=== PATIENT | male | born 1950 | race Two or more races ===

== ENCOUNTER 2019-09-16 20:18 | Inpatient (IN) | payer OTHER, MEDICAID ==
--- NOTE | 2019-09-13 23:15 | NUR ---
Wound photo taken. Patient was finally relaxed enough to allow me to look at his left foot, where his daughter, Priyanka, told us he had a wound. Wound photo taken on non-blanchable pressure area to left second toe. All other skin appears intact. Patient still refusing to allow me to assess the rest of his skin. Addendum: 09/18/19 at 7 by BRENNAN MEDINA RN Wrong time. Disregard.
[~2019-09-16] VITALS: Ht 170.2 cm; Wt 86.1 kg
[2019-09-16 21:20] LABS: Basophils # (auto) 0 10 ^3/uL (0-0.2); Basophils % (auto) 0.4 % (0.0-2.0); Eosinophils # (auto) 0.1 10 ^3/uL (0-0.8); Eosinophils % (auto) 1.5 % (0.0-7.0); Hematocrit 41.6 % (41.0-53.0); Hemoglobin 13.9 g/dL (13.5-17.5); Lymphocytes # (auto) 2.1 10 ^3/uL (0.4-5.4); Lymphocytes % (auto) 31.5 % (10.0-50.0); Mean Corpuscular Hgb Conc. 33.5 g/dL (32.0-36.0); Mean Corpuscular Volume 92.7 fL (80.0-100.0); Monocytes # (auto) 0.6 10 ^3/uL (0-1.3); Monocytes % (auto) 9.1 % (0.0-12.0); Neutrophils # (auto) 3.8 10 ^3/uL (1.6-8.6); Neutrophils % (auto) 57.5 % (37.0-80.0); Nucleated Red Blood Cells % 0.1 %; Platelet Count (auto) 137 10^3/uL (140-450); Red Blood Cells 4.49 10^6/uL (4.5-5.90); Red Cell Distribution Width 13.2 % (11.8-14.3); White Blood Cell 6.5 10^3/uL (4.4-10.8)
[2019-09-16 21:31] LABS: INR 1.11 (0.9-1.15); Partial Thromboplastin Time 29.1 sec (23.64-32.05)
[2019-09-16 21:37] LABS: Albumin 3.2 g/dL (3.4-5.0); Anion Gap 5 (5-15); Blood Urea Nitrogen 29 mg/dL (7-18); Calcium 8.4 mg/dL (8.5-10.1); Carbon Dioxide 24 mmol/L (21-32); Chloride 111 mmol/L (98-107); Glucose 127 mg/dL (74-106); Magnesium 2.1 mg/dL (1.6-2.6); Potassium 3.8 mmol/L (3.5-5.1); Sodium 140 mmol/L (136-145)
[2019-09-16 21:45] LABS: Alanine Aminotransferase 21 U/L (16-61); Alkaline Phosphatase 130 U/L (45-117); Aspartate Aminotransferase 18 U/L (15-37); BUN/Creatinine Ratio 16.8; Bilirubin, Total 0.5 mg/dL (0.2-1.0); GFR African American 51 mL/min; GFR Non-African American 42 mL/min; Total Protein 7.7 g/dL (6.4-8.2)
[2019-09-17] MEDS ORDERED: DEXTROSE (50%) 50ML SYRG IV PRN ×2 (00:30→10:15)
[2019-09-17] MEDS ORDERED: TEMAZEPAM 15 MG CAP PO PRN (00:30)
[2019-09-17] MEDS ORDERED: ONDANSETRON HCL 4 MG/2 ML VIAL IV PRN (00:30)
[2019-09-17] MEDS ORDERED: ACETAMINOPHEN 325 MG TAB PO PRN (00:30)
[2019-09-17] MEDS ORDERED: NITROGLYCERIN 0.4 MG SL TAB SL PRN (01:00)
[2019-09-17] MEDS ORDERED: MORPHINE SULF INJ 2 MG/ML SYRINGE 1ML IV PRN (01:00)
[2019-09-17] MEDS ORDERED: InsuLIN REG 1unit/0.01ml Soln (100units/ml) SC SCH ×2 (07:00→22:00)
[2019-09-17] MEDS ORDERED: ACCU-CHEK COMFORT CURVE STRIP VI SCH (07:00)
--- NOTE | 2019-09-17 08:25 | NUR ---
Telemetry admit from KATARINA CROWDERANAMIKA POOLE admitted to Telemetry unit after SBAR received. Patient oriented to SIMON, rama RN, unit, room, bed, and unit policies regarding patient care and visiting hours. Patient now on continuous telemetry monitoring, tele box #27 and telemetry reading on arrival to unit is sinus rhythm 74bpm. Patient on room air, weighed by bedscale, sitter at bed side for safety due to inpredictable behavior. All questions and concerns addressed, patient needs reinforcement due to wandering thoughts and inability to concentrate.
--- NOTE | 2019-09-17 08:35 | NUR ---
Patient refuses complete assessment, by refusing to take off jeans and socks. Patient educated on need of accurate assessment and continues to refuse and agitated. Will try again later. Sitter at bed side for safety.
--- NOTE | 2019-09-17 08:45 | NUR ---
MED REC/PHARMACY Unable to update home medication record or pharmacy. Patient verbalizes he does take medications at home but is unable to provide names or dosages, and states he has no pharmacy. Unable to verify with family d/t no [facility] contact info in chart and pt unable to provide info.
--- NOTE | 2019-09-17 09:11 | NUR ---
Emergency Contact Unable to add emergency contact, patient states he lives with his daughter July in [place] but does not know her phone number. No number on file.
--- NOTE | 2019-09-17 09:12 | NUR ---
Pneumonia/Flu Vaccine Unable to verify if patient vaccinated, patient states he does not know.
[2019-09-17] MEDS: PANTOPRAZOLE 40 MG TAB PO SCH (10:05)
[2019-09-17] MEDS: ASPirin 81 mg TAB PO SCH (10:05)
[2019-09-17] MEDS: SODIUM CHLORIDE 0.9% 1,000 ML IV SCH (10:15)
--- NOTE | 2019-09-17 11:00 | NUR ---
Call from patients daughter July, best call back number is [phone]. PW:Emilee Mcdowell able to update patients PMH, HOME MEDS, PHARMACY, VACCINE HX REMAINS UNKNOWN. Will update MD on new findings.
[2019-09-17] MEDS ORDERED: OMEP20TA PO (11:01)
[2019-09-17] MEDS ORDERED: QUET25TA37 PO (11:01)
[2019-09-17] MEDS ORDERED: AML5T PO (11:01)
[2019-09-17] MEDS ORDERED: ASCO500T11 PO (11:01)
[2019-09-17] MEDS ORDERED: LEVE500T22 PO (11:01)
[2019-09-17] MEDS ORDERED: LACT10PA2 PO (11:01)
[2019-09-17] MEDS ORDERED: RISP0.5T12 PO (11:01)
[2019-09-17] MEDS ORDERED: LISI10TA6 PO (11:01)
--- NOTE | 2019-09-17 11:05 | NUR ---
WOUND ASSESSMENT Per CARLA (DAUGHTER), she was told by [facility] that patient had a "right second toe necrotic wound", daughter states patient has been living with her since beginning of June and has not visualized wound herself. Patient continues to refuse assessment, by refusing to take off socks. Also unable to visualize legs, buttocks, back area due to clothing.
--- NOTE | 2019-09-17 11:15 | NUR ---
Nuc Med tech at bed side. Patient agitated and cursing at staff. Refusing IV inj needed for cardiolite. Will made MD aware.
[2019-09-17] MEDS ORDERED: amLODIPine BESYLATE 5 MG TAB PO ONE (11:30)
[2019-09-17] MEDS ORDERED: risperiDONE 1 MG TAB PO ONE (11:30)
--- NOTE | 2019-09-17 11:30 | NUR ---
Md Benítez aware of new findings. Home meds resumed and new orders received. Refer to order hx.
--- NOTE | 2019-09-17 11:40 | NUR ---
Prn for agitation administered as per order. Per MD, call nuc med after patient is calm to resume with order.
[2019-09-17] MEDS: LORazepam 2MG/ML-1ML VIAL IV PRN ×2 (11:43→20:23)
[2019-09-17] MEDS: ACCU-CHEK COMFORT CURVE STRIP VI SCH ×3 (11:47→23:08)
[2019-09-17] MEDS: InsuLIN REG 1unit/0.01ml Soln (100units/ml) SC SCH ×3 (11:54→23:25)
--- NOTE | 2019-09-17 12:55 | NUR ---
Call to [facility] med post PRN administration. Per tech they will servicing computers at 1400 and test takes about 90 min. Test to be rescheduled for AM. Patient to remain NPO status after midnight.
[2019-09-17 13:00] VITALS: BP 136/88
--- NOTE | 2019-09-17 16:27 | NUR ---
Per sitter patient became agitated and got out of bed and while being connected to IVF threw pole to floor and IV nearly came off. Patient currently sitting on side of bed, IV still patent and in place, and dressing reinforced. PRN not due at this time. Will continue to monitor.
[2019-09-17 17:00] VITALS: BP 143/90
--- NOTE | 2019-09-17 17:00 | NUR ---
Patient continues to be agitated and disoriented. Reoriented to place, situation and time. Patient refuses 1700 glucose test. Rumbling about "being at bank and needs to deposit money"
--- NOTE | 2019-09-17 19:26 | NUR ---
Opening Shift Note Assumed care of patient, awake but alert only to self/. No S/S of distress/SOB or pain. Patient seems calm one moment and easily frustrated and aggressive with staff the next. Sitter available at bedside. Bed is in lowest position and locked. Call light within reach. Board updated. Tele box number matches monitor and leads are in correct placement. Instructed on POC and to call for assist PRN, will continue to monitor for changes Q1hr and PRN.
--- NOTE | 2019-09-17 19:38 | NUR ---
closing note patient resting in bed on room air with even and unlabored respirations. no s/s of distress. bed in lowest locked position with side rails up x 2 and patted for seizure precautions, sitter at bed side for safety. Endorsed care to NOC shift RN.
--- NOTE | 2019-09-17 20:14 | NUR ---
Patient refusing to allow me to assess him. Patient refusing to allow me to assess skin or listen to lungs, abdomen, and heart. Patient is confused, alert to self only, and has very labile temper. Will attempt to assess later after Ativan administration.
--- NOTE | 2019-09-17 21:15 | NUR ---
Patient refusing to have second IV placed for cardiolite stress test. Patient is confused (alert to self) but gets agitated and pulls away when anyone touches him. Patient has one 20 gauge IV to right wrist.
[2019-09-17 22:00] VITALS: BP 144/92
[2019-09-17] MEDS: LACTULOSE 20Gm/30ML SOLN PO SCH (23:00)
[2019-09-17] MEDS: levETIRAcetam 500 MG TAB PO SCH (23:07)
[2019-09-17] MEDS: ATORVASTATIN 20 MG TAB PO SCH (23:07)
[2019-09-17] MEDS: risperiDONE 1 MG TAB PO SCH (23:08)
[2019-09-17] MEDS: QUEtiapine FUMARATE 25 MG TAB PO SCH (23:08)
--- NOTE | 2019-09-17 23:15 | NUR ---
Wound photo taken. Patient was finally relaxed enough to allow me to look at his left foot, where his daughter, Priyanka, told us he had a wound. Wound photo taken on non-blanchable pressure area to left second toe. All other skin appears intact. Patient still refusing to allow me to assess the rest of his skin.
[2019-09-18] MEDS: SODIUM CHLORIDE 0.9% 1,000 ML IV SCH ×2 (02:55→19:35)
[2019-09-18] MEDS: LORazepam 2MG/ML-1ML VIAL IV PRN (04:31)
--- NOTE | 2019-09-18 04:34 | NUR ---
Patient became agitated and aggressive with staff. Patient got up to use the restroom with DEPARTMENT SALES MANAGER sitter but became unsteady on his feet and aggressive. We helped patient to toilet and back without trouble but patient pulled off his tele-box and refused to allow us to put it back on. Patient is alert and oriented to self only. We attempted a second time to reorient patient and he became slightly calmer but then he pulled off his tele leads again within minutes. DEPARTMENT SALES MANAGER attempted to take vitals from patient. Patient became aggressive once more when I attempted to take an axillary temp. Patient allowed us to put temp probe in mouth but then started biting the probe. We removed it quickly to prevent patient from injuring himself. Ativan given for anxiety. Will reassess. Notified [place] office of patient's behavior and refusal of tele box.
[2019-09-18 05:00] VITALS: BP 151/80
--- NOTE | 2019-09-18 05:07 | NUR ---
Paging LAURA Hernandez to notify that patient will not allow us to keep his Tele-box on and is refusing other standard treatments like allowing us to assess his skin or collect vital signs. Patient was admitted for unstable angina and CP. Cardiology is on board and patient is scheduled for ECHO today. Patient has history of dementia and has been aggressive with staff since his admission on 09/16. Patient was given Ativan to calm him down. He has become calmer but he still pulls of the tele leads as soon as they are replaced on his chest.
[2019-09-18 05:52] LABS: Basophils # (auto) 0 10 ^3/uL (0-0.2); Basophils % (auto) 0.5 % (0.0-2.0); Eosinophils # (auto) 0.1 10 ^3/uL (0-0.8); Eosinophils % (auto) 1.9 % (0.0-7.0); Hematocrit 40.2 % (41.0-53.0); Hemoglobin 14.2 g/dL (13.5-17.5); Lymphocytes # (auto) 1.7 10 ^3/uL (0.4-5.4); Lymphocytes % (auto) 27.1 % (10.0-50.0); Mean Corpuscular Hemoglobin 32.3 pg (28.0-32.0); Mean Corpuscular Hgb Conc. 35.3 g/dL (32.0-36.0); Mean Corpuscular Volume 91.5 fL (80.0-100.0); Monocytes # (auto) 0.6 10 ^3/uL (0-1.3); Monocytes % (auto) 9.1 % (0.0-12.0); Neutrophils # (auto) 3.8 10 ^3/uL (1.6-8.6); Neutrophils % (auto) 61.4 % (37.0-80.0); Platelet Count (auto) 137 10^3/uL (140-450); Red Cell Distribution Width 13.3 % (11.8-14.3); White Blood Cell 6.2 10^3/uL (4.4-10.8)
[2019-09-18 06:21] LABS: BUN/Creatinine Ratio 20.5; Calcium 8.7 mg/dL (8.5-10.1); Potassium 3.6 mmol/L (3.5-5.1)
[2019-09-18] MEDS: InsuLIN REG 1unit/0.01ml Soln (100units/ml) SC SCH ×4 (06:25→22:00)
[2019-09-18] MEDS: ACCU-CHEK COMFORT CURVE STRIP VI SCH ×4 (06:25→22:00)
[2019-09-18] MEDS ORDERED: LORazepam 0.5 MG TAB PO PRN (07:00)
--- NOTE | 2019-09-18 07:30 | NUR ---
Opening Shift Note Assumed care of patient, awake, confused . No S/S of distress/SOB or pain. Instructed on POC and to call for assist PRN, will continue to monitor for changes Q1hr and PRN. Sitter at bedside.
--- NOTE | 2019-09-18 08:00 | NUR ---
Patient assisted to turned to his side. Skin to back and buttocks clear. Unable to assess feet. Will continue to monitor.
[2019-09-18 09:00] VITALS: BP 131/83
--- NOTE | 2019-09-18 09:50 | NUR ---
Dr. Benítez in to see patient as hospitalist.
[2019-09-18] MEDS: ASPirin 81 mg TAB PO SCH (10:00)
[2019-09-18] MEDS: LISINOPRIL 10 MG TAB PO SCH (10:00)
[2019-09-18] MEDS: LACTULOSE 20Gm/30ML SOLN PO SCH ×2 (10:00→22:00)
[2019-09-18] MEDS: risperiDONE 1 MG TAB PO SCH ×2 (10:00→22:00)
[2019-09-18] MEDS: PANTOPRAZOLE 40 MG TAB PO SCH (10:00)
[2019-09-18] MEDS: amLODIPine BESYLATE 5 MG TAB PO SCH (10:00)
[2019-09-18] MEDS: levETIRAcetam 500 MG TAB PO SCH ×2 (10:00→22:00)
--- NOTE | 2019-09-18 10:01 | NUR ---
Patient taken to [facility] by [facility] staff. slab off mill tender informed the patient has dementia and the family has not been informed of the procedure.
--- NOTE | 2019-09-18 10:25 | NUR ---
Biochemistry Specialist; Patient brought down to Biochemistry Specialist Pre-Op, Spoke to Julyleann Gutierrez (daughter) via telephone, password confirmed ("Emilee"). Dr. Patterson spoke to her and attempted to obtain consent for [facility] procedure, however at this time July feels the procedure is not warranted and elected to no proceed with procedure. Patient taken back up to room, sitter at bedside, primary RN given report, care endorsed to RN.
--- NOTE | 2019-09-18 10:26 | NUR ---
Patient returned to room. Sitter at bedside.
--- NOTE | 2019-09-18 11:21 | NUR ---
WOUND CARE NOTE: Wound care in to see patient per wound care request regarding "Injury to left second toe" that are noted present on admission. Bedside nurse took photograph of wound upon admission for reference. Patient is 69 years old male with admitting diagnosis of Unstable Angina. Patient is resting in bed in Rm. 212A. His eyes are closed, respirations even and unlabored. Patient appears to be in no pain using Mart Griffiths Faces Pain Scale. His Aditya score is 20.No open wound noted other than L 2nd toe 0.5x0.5cm, dry, lean, scabbed abrasion, surrounding skin is pink, clean and dry,left open to air. Nurse medical services assistant at bedside. No further wound care monitoring needed at this time. RECOMMENDATION: Nursing to continue with BID/PRN cleaning and application of Barrier to sacral, buttocks as preventative,redistribute pressure points with pillows, reconsult for active wound, pressure injury,low Aditya score of 12 and below. Addendum: 09/18/19 at 1304 by Carmencita Chapa RN Amended: Links added.
[2019-09-18] MEDS ORDERED: LORazepam 2MG/ML-1ML VIAL IV PRN (12:00)
--- NOTE | 2019-09-18 12:05 | NUR ---
Patient OOB in the bathroom. Patient yelling, waving arms. Patient very unsteady in his feet, refusing assist back to bed. Candy Townsend called. Security came to room. Patient eventually went back to sit in chair. Dr. Jeyson mcgarry for Ativan IV PRN order. Patient given 1 mg Ativan IV. Patient assisted back to bed. Will continue to monitor. Sitter at bedside.
--- NOTE | 2019-09-18 12:15 | NUR ---
Dr. Benítez informed that the patient is refusing to take PO meds.
--- NOTE | 2019-09-18 14:25 | NUR ---
Nutrition Assessment Notes Please refer to link for full assessment notes. Est Energy needs: 2508-3545 kcals (17-20 kcal/kgBW) Est Protein needs: 101-135 gms/day (1.5-2.0 gm/kgBW) d/t pt obesity Will continue to monitor and reassess prn. Addendum: 09/18/19 at [address] Amended: Links added.
--- NOTE | 2019-09-18 14:29 | NUR ---
Received call from marilia. Patient found OOB in the bathroom urinating in the toilet. Patient very unsteady on his feet. Sitter trying to steady patient. Patient started yelling, turned around, hit wall with his fist. Patient calmed down, assisted back to bed. Patient refused to have linens changed at this time. Will continue to monitor.
--- NOTE | 2019-09-18 14:35 | NUR ---
Patient continually pulls off telemetry box. Page placed to Dr. Benítez to see if telemetry can be discontinued.
--- NOTE | 2019-09-18 16:39 | NUR ---
Assessment Patient is a 69-year-old male who is confused with mental disorders. Assessment was completed with patient daughter July ). Per July prior to admission patient lived home with her and functioned with assistance. Per July patient has been living with her since June of 2019 stating patient was previously at [facility]. July informed me patient has dementia with schizophrenia and bipolar disorder. Advised July there is a Social Service consult for placement. Per July she has been contacting different placements for patient but has been unable to place him as she can no longer care for him. Per July patient receives SSI and disability combined with an amount of [id number]. July has question about hospice and would like provider to evaluate patient to see if he meets criteria. Informed July she has the right to participate in all discharge planning. July verbalized understanding and agreed to discharge plan. Informed JANNETTE Grajeda regarding possible hospice with placement. , Dr. Webb will be notified. Addendum: 09/18/19 at 1640 by DUTCH SEXTON Amended: Links added.
--- NOTE | 2019-09-18 19:20 | NUR ---
Opening Shift Note Assumed care of patient, awake, alert and oriented to self, on room air with even and unlabored respirations, no S/S of distress/SOB or pain. Patient able to turn in bed independently, bed in lowest locked position, side rails up x2, and call light within reach. Sitter at bedside for safety. Instructed on POC and to call for assist PRN, will continue to monitor for changes Q1hr and PRN.
--- NOTE | 2019-09-18 20:00 | NUR ---
PATIENT REFUSED ASSESSMENT PATIENT REFUSED FOR ASSESSMENT OF ANY SORT, INCLUDING HEART, LUNGS, SKIN. INFORMED PATIENT ON IMPORTANCE OF ALLOWING AN ASSESSMENT. WILL CONTINUE TO MONITOR Q1 PRN. SITTER AT BEDSIDE FOR SAFETY.
[2019-09-18] MEDS: ATORVASTATIN 20 MG TAB PO SCH (22:00)
[2019-09-18] MEDS: QUEtiapine FUMARATE 25 MG TAB PO SCH (22:00)
[2019-09-19 05:54] LABS: Basophils # (auto) 0 10 ^3/uL (0-0.2); Basophils % (auto) 0.4 % (0.0-2.0); Eosinophils # (auto) 0.1 10 ^3/uL (0-0.8); Eosinophils % (auto) 2.2 % (0.0-7.0); Hematocrit 42.6 % (41.0-53.0); Hemoglobin 14.6 g/dL (13.5-17.5); Lymphocytes # (auto) 1.7 10 ^3/uL (0.4-5.4); Lymphocytes % (auto) 29.1 % (10.0-50.0); Mean Corpuscular Hemoglobin 31.2 pg (28.0-32.0); Mean Corpuscular Hgb Conc. 34.2 g/dL (32.0-36.0); Mean Corpuscular Volume 91.2 fL (80.0-100.0); Monocytes # (auto) 0.6 10 ^3/uL (0-1.3); Monocytes % (auto) 9.2 % (0.0-12.0); Neutrophils # (auto) 3.5 10 ^3/uL (1.6-8.6); Neutrophils % (auto) 59.1 % (37.0-80.0); Nucleated Red Blood Cells % 0.1 %; Platelet Count (auto) 141 10^3/uL (140-450); Red Blood Cells 4.67 10^6/uL (4.5-5.90); Red Cell Distribution Width 13.5 % (11.8-14.3)
[2019-09-19 06:08] LABS: Potassium 3.9 mmol/L (3.5-5.1)
[2019-09-19 06:13] LABS: BUN/Creatinine Ratio 17.6; Calcium 8.9 mg/dL (8.5-10.1)
[2019-09-19] MEDS: InsuLIN REG 1unit/0.01ml Soln (100units/ml) SC SCH ×4 (06:56→21:34)
[2019-09-19] MEDS: ACCU-CHEK COMFORT CURVE STRIP VI SCH ×4 (06:56→21:33)
--- NOTE | 2019-09-19 07:30 | NUR ---
Opening Shift Note RECEIVED REPORT FROM NOC RN. Assumed care of patient, awake and alert. No S/S of distress/SOB or pain. BED IN LOWEST, LOCKED POSITION WITH SIDERAILS UP x2 AND CALL LIGHT WITHIN REACH AND SITTER AT BEDSIDE. Instructed on POC and to call for assist PRN, will continue to monitor for changes Q1hr and PRN.
[2019-09-19] MEDS: levETIRAcetam 500 MG TAB PO SCH ×2 (10:20→21:26)
[2019-09-19] MEDS: LACTULOSE 20Gm/30ML SOLN PO SCH ×2 (10:20→21:25)
[2019-09-19] MEDS: ASPirin 81 mg TAB PO SCH (10:20)
[2019-09-19] MEDS: amLODIPine BESYLATE 5 MG TAB PO SCH (10:21)
[2019-09-19] MEDS: LISINOPRIL 10 MG TAB PO SCH (10:22)
[2019-09-19] MEDS: PANTOPRAZOLE 40 MG TAB PO SCH (10:22)
[2019-09-19] MEDS: risperiDONE 1 MG TAB PO SCH ×2 (10:22→21:26)
[2019-09-19 13:34] VITALS: BP 130/78
[2019-09-19 13:50] VITALS: BP 130/78
[2019-09-19] MEDS: SODIUM CHLORIDE 0.9% 1,000 ML IV SCH (15:37)
[2019-09-19 16:53] VITALS: BP 132/76
--- NOTE | 2019-09-19 17:14 | NUR ---
PATIENT COMPLIANT WITH ALL ASSESSMENTS, TREATMENTS, AND MEDICATIONS.
--- NOTE | 2019-09-19 19:09 | NUR ---
Received report from JANNETTE Busby. Pt in bed resting A&o x3, respirations even and unlabored no signs of distress noted. safety checks, bed at lowest position, wheel locked, call light within reach, no clutter on floor. sitter at bedside. Signed: 09/19/19 at 1912 by Reg Keshav BHATIA
[2019-09-19] MEDS: QUEtiapine FUMARATE 25 MG TAB PO SCH (21:25)
[2019-09-19] MEDS: ATORVASTATIN 20 MG TAB PO SCH (21:26)
[2019-09-19 21:30] VITALS: BP 111/57
[2019-09-20] MEDS: SODIUM CHLORIDE 0.9% 1,000 ML IV SCH ×2 (04:55→21:35)
[2019-09-20] MEDS: InsuLIN REG 1unit/0.01ml Soln (100units/ml) SC SCH ×4 (06:05→22:00)
[2019-09-20] MEDS: ACCU-CHEK COMFORT CURVE STRIP VI SCH ×4 (06:05→22:00)
--- NOTE | 2019-09-20 07:27 | NUR ---
End of shift note Report given to JANNETTE Davila. Pt in bed with eyes closed, respirations even and unlabored, face expression relaxed, no signs of distress. Bed at lowest position, wheels locked, call light within reach, floor free of clutter. Sitter at bedside.
--- NOTE | 2019-09-20 07:40 | NUR ---
Opening Shift Note Assumed care of patient, awake and alert. No S/S of distress/SOB or pain. Instructed on POC and to call for assist PRN, will continue to monitor for changes Q1hr and PRN. Bed locked in lowest position with two side rails up and call light in reach.
--- NOTE | 2019-09-20 08:00 | NUR ---
OFFERED BREAKFAST TO PATIENT. HE STATED "YA BITCH AFTER I TAKE A SHOWER". THEN HE FELL BACK TO SLEEP. JANNETTE EDMOND NOTIFIED.
--- NOTE | 2019-09-20 08:45 | NUR ---
PATIENT CLIMBING OUT OF BED, I ASKED HIM TO LET ME HELP HIM HE STATED "FUCK YOU BITCH I DON'T NEED YOUR HELP". THEN I OFFERED TO GET HIS SLIPPERS FOR HIM, AND HE JUMPED UP CHARGING AT ME I BACKED UP OUT THE ROOM. HE WAS YELLING AND CURSING AT ME. WHEN I REACHED THE EDMOND I YELLED FOR HELP. JANNETTE EDMOND CAME TO HELP AND HE WAS HELPED BACK TO BED BY JANNETTE GUERRERO.
[2019-09-20] MEDS: LACTULOSE 20Gm/30ML SOLN PO SCH ×2 (09:17→22:45)
[2019-09-20] MEDS: PANTOPRAZOLE 40 MG TAB PO SCH (09:17)
[2019-09-20] MEDS: ASPirin 81 mg TAB PO SCH (09:18)
[2019-09-20] MEDS: levETIRAcetam 500 MG TAB PO SCH ×2 (09:18→22:46)
[2019-09-20] MEDS: risperiDONE 1 MG TAB PO SCH ×2 (09:19→22:00)
[2019-09-20] MEDS: amLODIPine BESYLATE 5 MG TAB PO SCH (09:24)
[2019-09-20] MEDS: LISINOPRIL 10 MG TAB PO SCH (09:24)
--- NOTE | 2019-09-20 09:30 | NUR ---
PATIENT REFUSED VITALS FOR MYSELF CHARGE NURSE CORINNA AND FOR LAMBERTO EDMOND. HEWAS INFORMED THE IMPORTANCE OF HIS VITALS. WILL TRY AGAIN LATER IN THE DAY
--- NOTE | 2019-09-20 10:42 | NUR ---
PATIENT BEHAVIOR PATIENT AGITATED, WALKING UP TO AIRPLANE DISPATCHER SITTER BEING AGGRESSIVE IN TONE, AND LANGUAGE. CALMED PATIENT DOWN AND REDIRECTED TO ROOM. MORNING MEDICATIONS GIVEN EXCEPT BP MEDS PATIENT REFUSING VITALS SIGNS. SO BP MEDICATIONS HELD DUE TO NOT GETTING BP PRIOR TO MEDICATIONS.
--- NOTE | 2019-09-20 13:00 | NUR ---
PATIENT REFUSED VITALS AT THIS TIME WILL TRY AGAIN AT 1700. JANNETTE EDMOND NOTIFIED
--- NOTE | 2019-09-20 14:40 | NUR ---
PATIENT AGITATED SECURITY REDIRECTING PATIENT BACK TO BED.
--- NOTE | 2019-09-20 16:10 | NUR ---
PAGED [facility] UNDERWRITER SW TO FIND OUT PATIENTS DISCHARGE STATUS FROM YESTERDAY. NO NEW NOTES PLACED IN REGARDS TO DISCHARGE BEING HELD. WILL AWAIT CALL BACK.
[2019-09-20 17:00] VITALS: BP 123/76
--- NOTE | 2019-09-20 17:25 | NUR ---
NO CALL BACK FROM [facility] RECEIVED. DR DENSON AWARE. WE WILL WAIT FOR AN UPDATE.
--- NOTE | 2019-09-20 20:00 | NUR ---
Opening Shift Note Assumed care of patient, awake and alert. No S/S of distress/SOB or pain. Instructed on POC and to call for assist PRN, will continue to monitor for changes Q1hr and PRN. Patient informed of the importance of telemetry monitoring and IV access. Patient decline to have both. Sitter at bedside.
[2019-09-20] MEDS: QUEtiapine FUMARATE 25 MG TAB PO SCH (22:00)
--- NOTE | 2019-09-20 22:00 | NUR ---
REFUSED TO HAVE HIS VITALS TAKEN. YELLED TO BE LEFT ALONE AND NOT BE TOUCHED.
[2019-09-20] MEDS: ATORVASTATIN 20 MG TAB PO SCH (22:46)
[2019-09-21 05:00] VITALS: BP 103/63
[2019-09-21] MEDS: InsuLIN REG 1unit/0.01ml Soln (100units/ml) SC SCH ×4 (06:49→23:00)
[2019-09-21] MEDS: ACCU-CHEK COMFORT CURVE STRIP VI SCH ×4 (06:49→23:00)
--- NOTE | 2019-09-21 06:53 | NUR ---
Patient resting comfortably;sitter remains at bedside. Patient continues to refuse Tele- monitoring and IV insertion. No distress noted.
[2019-09-21 07:01] LABS: Basophils # (auto) 0 10 ^3/uL (0-0.2); Basophils % (auto) 0.3 % (0.0-2.0); Eosinophils # (auto) 0.1 10 ^3/uL (0-0.8); Eosinophils % (auto) 1.1 % (0.0-7.0); Hematocrit 42.8 % (41.0-53.0); Hemoglobin 14.6 g/dL (13.5-17.5); Lymphocytes # (auto) 1.6 10 ^3/uL (0.4-5.4); Lymphocytes % (auto) 25.6 % (10.0-50.0); Mean Corpuscular Hemoglobin 31.5 pg (28.0-32.0); Mean Corpuscular Hgb Conc. 34.2 g/dL (32.0-36.0); Mean Corpuscular Volume 92.3 fL (80.0-100.0); Monocytes # (auto) 0.7 10 ^3/uL (0-1.3); Monocytes % (auto) 10.9 % (0.0-12.0); Neutrophils # (auto) 3.8 10 ^3/uL (1.6-8.6); Neutrophils % (auto) 62.1 % (37.0-80.0); Nucleated Red Blood Cells % 0.1 %; Platelet Count (auto) 142 10^3/uL (140-450); Red Blood Cells 4.63 10^6/uL (4.5-5.90); Red Cell Distribution Width 13.1 % (11.8-14.3); White Blood Cell 6.1 10^3/uL (4.4-10.8)
[2019-09-21 07:19] LABS: BUN/Creatinine Ratio 21.9; Calcium 8.9 mg/dL (8.5-10.1); Potassium 3.7 mmol/L (3.5-5.1)
--- NOTE | 2019-09-21 07:40 | NUR ---
Opening Shift Note Assumed care of patient who is sleeping at this time. No S/S of distress/SOB or pain. Will continue to monitor for changes Q1hr and PRN. Bed locked in lowest position with two side rails up and call light in reach. Sitter at bedside.
[2019-09-21] MEDS: LACTULOSE 20Gm/30ML SOLN PO SCH ×2 (09:33→23:00)
[2019-09-21] MEDS: PANTOPRAZOLE 40 MG TAB PO SCH (09:34)
[2019-09-21] MEDS: levETIRAcetam 500 MG TAB PO SCH ×2 (09:34→23:00)
[2019-09-21] MEDS: risperiDONE 1 MG TAB PO SCH ×2 (09:34→23:00)
[2019-09-21] MEDS: ASPirin 81 mg TAB PO SCH (09:35)
[2019-09-21] MEDS: amLODIPine BESYLATE 5 MG TAB PO SCH (10:00)
[2019-09-21] MEDS: LISINOPRIL 10 MG TAB PO SCH (10:00)
--- NOTE | 2019-09-21 11:57 | NUR ---
Nutrition Followup Notes Wt: 85.6 kg Pt was sleeping with no family by bedside. per records pt with dementia. pt with no distress noted. pt is currently on CCHO 60 gm/meal diet with inadequate PO of <50% x 4 per RN doc Est Energy needs: 2198-1769 kcals (17-20 kcal/kgBW), Est Protein needs: 101-135 gms/day (1.5-2.0 gm/kgBW) d/t pt obesity. Will continue to monitor and reassess prn. LABS: BUN 33 H, CREAT 1.51 H, GI: Pt has 2 BM yesterday per RN doc BS: 21 low risk skin intact per RN doc PES: 1) Altered nutrition related lab values aeb elev Troponin, mild hypoalbuminemia r/t current medical condition 2) Obesity aeb 132% IBW and BMI of 30.6 kg/m2 r/t energy intake in excess of energy needs Comments 1) Continue to closely monitor pt PO intake to meet at least 75% of meals. 2) Continue current plan of care. F/u mod 3-5 days
--- NOTE | 2019-09-21 13:15 | NUR ---
DR JIAN CLAY. NEW ORDERS RECEIVED WILL IMPLEMENT.
--- NOTE | 2019-09-21 13:30 | NUR ---
PER DR JIAN MORA TO RI TELE PATIENT HAS BEEN REFUSING TELEMETRY FOR DAYS. ALSO OK TO LEAVE IV ACCESS OUT PATIENT IS ALSO REFUSING.
[2019-09-21] MEDS: SODIUM CHLORIDE 0.9% 1,000 ML IV SCH (14:15)
[2019-09-21] MEDS ORDERED: LORazepam 0.5 MG TAB PO PRN (14:30)
--- NOTE | 2019-09-21 17:37 | NUR ---
PT REFUSED ALL VITALS TODAY, NURSE NOTIFIED
--- NOTE | 2019-09-21 20:42 | NUR ---
Pt resting quietly in bed. Sitter at bedside. Denies complaints. NAD. easily woken to voice. Respirations unlabored. Skin warm and dry. WCTM.
[2019-09-21 22:00] VITALS: BP 106/65
--- NOTE | 2019-09-21 22:00 | NUR ---
Patient refused all medications and accucheck. Asleep, easily woken to voice. Respirations unlabored. Skin warm and dry.NAD. Sitter at bedside. HASMUKH.
[2019-09-21] MEDS: QUEtiapine FUMARATE 25 MG TAB PO SCH (23:00)
[2019-09-21] MEDS: ATORVASTATIN 20 MG TAB PO SCH (23:00)
[2019-09-22] MEDS: SODIUM CHLORIDE 0.9% 1,000 ML IV SCH (05:40)
[2019-09-22] MEDS: InsuLIN REG 1unit/0.01ml Soln (100units/ml) SC SCH ×4 (05:51→21:23)
[2019-09-22] MEDS: ACCU-CHEK COMFORT CURVE STRIP VI SCH ×4 (05:52→21:23)
--- NOTE | 2019-09-22 06:27 | NUR ---
Pt resting quietly in bed. Easily woken to voice. Gown and linens clean and dry. Respirations unlabored. Skin warm and dry. Sitter at bedside. No IV access on tele monitor, MD aware, no further orders. NAD. No changes to patient condition.
--- NOTE | 2019-09-22 07:30 | NUR ---
OPENING NOTE ASSUMED CARE OF PT. PT AWAKE AND ALERT. NO S/S OF SOB/DISTRESS NOTED. BED SET TO LOWEST POSITION/LOCKED, BEDSIDE RAILS UP X2, CALL LIGHT WITHIN REACH. INSTRUCTED PT TO CALL FOR ASSISTANCE. SITTER AT BEDSIDE FOR SAFETY. WILL CONTINUE TO MONITOR Q1HR AND PRN.
[2019-09-22 09:00] VITALS: BP 124/79
[2019-09-22] MEDS: ASPirin 81 mg TAB PO SCH (09:39)
[2019-09-22] MEDS: levETIRAcetam 500 MG TAB PO SCH ×2 (09:39→21:12)
[2019-09-22] MEDS: risperiDONE 1 MG TAB PO SCH ×3 (09:39→21:12)
[2019-09-22] MEDS: LISINOPRIL 10 MG TAB PO SCH (09:40)
[2019-09-22] MEDS: PANTOPRAZOLE 40 MG TAB PO SCH (09:40)
[2019-09-22] MEDS: amLODIPine BESYLATE 5 MG TAB PO SCH (09:40)
[2019-09-22] MEDS: LACTULOSE 20Gm/30ML SOLN PO SCH ×2 (09:42→21:12)
[2019-09-22 13:00] VITALS: BP 127/82
[2019-09-22 13:58] LABS: Basophils # (auto) 0 10 ^3/uL (0-0.2); Basophils % (auto) 0.2 % (0.0-2.0); Eosinophils # (auto) 0.1 10 ^3/uL (0-0.8); Eosinophils % (auto) 0.8 % (0.0-7.0); Hematocrit 45.1 % (41.0-53.0); Hemoglobin 15.5 g/dL (13.5-17.5); Lymphocytes # (auto) 1.5 10 ^3/uL (0.4-5.4); Lymphocytes % (auto) 21.5 % (10.0-50.0); Mean Corpuscular Hemoglobin 31.5 pg (28.0-32.0); Mean Corpuscular Hgb Conc. 34.3 g/dL (32.0-36.0); Mean Corpuscular Volume 92.1 fL (80.0-100.0); Monocytes # (auto) 0.8 10 ^3/uL (0-1.3); Monocytes % (auto) 11.7 % (0.0-12.0); Neutrophils # (auto) 4.7 10 ^3/uL (1.6-8.6); Neutrophils % (auto) 65.8 % (37.0-80.0); Platelet Count (auto) 175 10^3/uL (140-450); Red Cell Distribution Width 13.1 % (11.8-14.3); White Blood Cell 7.1 10^3/uL (4.4-10.8)
[2019-09-22 14:11] LABS: Calcium 8.9 mg/dL (8.5-10.1); Potassium 4.4 mmol/L (3.5-5.1)
--- NOTE | 2019-09-22 17:03 | NUR ---
D/C Planning Per SS consult for hospice. Faxed clinical information to [facility] as requested by family. Per Carina with [facility] ) they are looking for placement. Will follow up in the morning.
[2019-09-22 17:15] VITALS: BP 120/72
--- NOTE | 2019-09-22 19:24 | NUR ---
Opening Shift Note Assumed care of patient after receiving report from cindy Todd RN. Patient awake and alert with no S/S of distress/SOB or pain. Call light within reach, bed in lowest position x2 side rails, sitter at bedside. Instructed on POC and to call for assist PRN, will continue to monitor for changes Q1hr and PRN.
[2019-09-22] MEDS: ATORVASTATIN 20 MG TAB PO SCH (21:13)
[2019-09-22] MEDS: QUEtiapine FUMARATE 25 MG TAB PO SCH (21:13)
[2019-09-22 22:00] VITALS: BP 119/71
--- NOTE | 2019-09-23 06:23 | NUR ---
Patient refused vitals Per NA, patient refused vital signs assessment.
--- NOTE | 2019-09-23 06:52 | NUR ---
Patient refused scheduled accu checks.
[2019-09-23] MEDS: InsuLIN REG 1unit/0.01ml Soln (100units/ml) SC SCH ×4 (06:53→22:00)
[2019-09-23] MEDS: ACCU-CHEK COMFORT CURVE STRIP VI SCH ×4 (06:54→22:00)
[2019-09-23] MEDS: amLODIPine BESYLATE 5 MG TAB PO SCH (10:00)
[2019-09-23] MEDS: PANTOPRAZOLE 40 MG TAB PO SCH (10:00)
[2019-09-23] MEDS: ASPirin 81 mg TAB PO SCH (10:00)
[2019-09-23] MEDS: LACTULOSE 20Gm/30ML SOLN PO SCH ×2 (10:00→22:00)
[2019-09-23] MEDS: levETIRAcetam 500 MG TAB PO SCH ×2 (10:00→22:00)
[2019-09-23] MEDS: risperiDONE 1 MG TAB PO SCH ×2 (10:27→22:00)
--- NOTE | 2019-09-23 10:34 | NUR ---
BEHAVIOR PATIENT IS BEING AGGRESSIVE AND BELLIGERENT WITH DR. HIDALGO AND NURSE, PATIENT IS BEGIN COMBATIVE WITH NURSE. PATIENT WAS REORIENTED AND CALMED DOWN. PATIENT WAS ADMINISTERED HIM MORNING MEDICATION RISPERDAL. PATIENT REFUSED ALL OTHER MEDICATION. WILL CONTINUE TO MONITOR FOR CHANGES.
--- NOTE | 2019-09-23 13:13 | NUR ---
COVID SWAB COVID SWAB COLLECTED AND WALK TO LAB BY THIS NURSE.
--- NOTE | 2019-09-23 17:15 | NUR ---
SOCIAL SERVICE PAGED HOME PERFORMANCE LABORER SOCIAL SERVICE RE: COVID RESULTS, AWAITING CALL BACK.
[2019-09-23 17:21] VITALS: BP 110/84
--- NOTE | 2019-09-23 19:15 | NUR ---
OPENING SHIFT NOTE: ASSUMED CARE OF PATIENT. PATIENT IS AWAKE AND ALERT BUT AGGRESSIVE TOWARDS PRIMARY RN AND STAFF. NO S/S OF SOB OR DISTRESS, RE-ORIENTED PATIENT AND CALMING ENVIRONMENT PROVIDED. BED IS IN LOWEST LOCKED POSITION, TWO SIDE RAILS RAISED, CALL CAMACHO WITHIN REACH, SAFETY MEASURES IN PLACE AND SITTER AT THE BEDSIDE. PATIENT REFUSES TO EAT DINNER AND VERBALIZES HE DOES NOT WANT PRIMARY RN TO TOUCH HIM SO PRIMARY ASSESSMENT UNABLE TO BE PERFORMED. INSTRUCTED ON POC AND ENCOURAGED TO USE CALL CAMACHO FOR ASSISTANCE. WILL CONTINUE TO MONITOR Q1 AND PRN.
--- NOTE | 2019-09-23 21:54 | NUR ---
PATIENT REFUSING VITAL AND ALL PM MEDICATIONS. WILL CONTINUE TO MONITOR AND PROVIDE EDUCATION.
[2019-09-23] MEDS ORDERED: QUEtiapine FUMARATE 25 MG TAB PO SCH (22:00)
[2019-09-23] MEDS: ATORVASTATIN 20 MG TAB PO SCH (22:00)
--- NOTE | 2019-09-23 22:00 | NUR ---
PATIENT REFUSING SCHEDULED ACCU CHECKS.
--- NOTE | 2019-09-24 06:11 | NUR ---
PATIENT REFUSING ALL VITALS, MORNING MEDS, AND SCHEDULED ACCU CHECKS. EDUCATION PROVIDED. PATIENT IS AGITATED AND AGGRESSIVE. WILL ENDORSE TO DAYSHIFT RN.
[2019-09-24] MEDS: InsuLIN REG 1unit/0.01ml Soln (100units/ml) SC SCH (06:35)
[2019-09-24] MEDS: ACCU-CHEK COMFORT CURVE STRIP VI SCH (06:35)
[2019-09-24 08:58] VITALS: BP 146/74
[2019-09-24] MEDS: risperiDONE 1 MG TAB PO SCH (09:56)
[2019-09-24] MEDS: LACTULOSE 20Gm/30ML SOLN PO SCH (09:56)
[2019-09-24] MEDS: ASPirin 81 mg TAB PO SCH (09:57)
[2019-09-24] MEDS: PANTOPRAZOLE 40 MG TAB PO SCH (09:57)
[2019-09-24] MEDS: amLODIPine BESYLATE 5 MG TAB PO SCH (09:59)
[2019-09-24] MEDS: levETIRAcetam 500 MG TAB PO SCH (09:59)
--- NOTE | 2019-09-24 10:46 | NUR ---
D/C Planning Received a follow up call this morning from Carina with [facility] advising me patient will be going to [facility] in [place] [phone] address: [address] [place] [address]. Transportation has been arranged with [facility] via [employer] with a 10:30 am strip picker time. Informed RN Delmy.
--- NOTE | 2019-09-24 10:53 | NUR ---
Discharge instructions given as ordered. Patient being transported to [facility] . Patient transported by [facility] with all personal belongings. No distress noted at time of departure.
== END 2019-09-24 11:00 | disposition home or self-care (01) | DRG 302 ==
LOC: EDBD 20:18 → ER 20:18 → TELE 20:19 → TELE-CENTR 09-17 08:27 → CENTRAL 09-21 19:19
PROVIDERS: ADMIT Nurse Practitioner; ATTEND Internal Medicine
DX: I25.110 Atherosclerotic heart disease of native coronary artery with unstable angina pectoris (principal); N17.0 Acute kidney failure with tubular necrosis; G93.40 Encephalopathy, unspecified; E11.65 Type 2 diabetes mellitus with hyperglycemia; N18.3 Chronic kidney disease, stage 3 (moderate); F03.90 Unspecified dementia, unspecified severity, without behavioral disturbance, psychotic disturbance, mood disturbance, and anxiety; I12.9 Hypertensive chronic kidney disease with stage 1 through stage 4 chronic kidney disease, or unspecified chronic kidney disease; E78.5 Hyperlipidemia, unspecified; E11.22 Type 2 diabetes mellitus with diabetic chronic kidney disease; F20.9 Schizophrenia, unspecified; E11.42 Type 2 diabetes mellitus with diabetic polyneuropathy; Z53.8 Procedure and treatment not carried out for other reasons; Z95.1 Presence of aortocoronary bypass graft; Z03.818 Encounter for observation for suspected exposure to other biological agents ruled out
CPT/HCPCS: 36415; 71045; 80048; 80053; 82140; 82962; 83036; 83735; 83880; 84443; 84484; 85025; 85610; 85730; 93005; 93306; 97116; 97163; 97530; G0378; J1815